=== PATIENT | female | born 1950 | race Caucasian/White ===

== ENCOUNTER 2022-04-29 09:26 | Outpatient (CLI) | payer MEDICARE, OTHER | END 2022-04-29 09:27 | disposition home or self-care (01) | LOC: CSHMAMMO 09:26 | PROVIDERS: ATTEND Specialist | DX: Z08 Encounter for follow-up examination after completed treatment for malignant neoplasm (principal); Z85.3 Personal history of malignant neoplasm of breast | CPT/HCPCS: 77066; G0279 ==

== ENCOUNTER 2022-12-17 06:06 | Day surgery (SDC) | payer MEDICARE, OTHER ==
[2022-12-13 10:02] VITALS: BMI 24.7
[2022-12-13 11:24] LABS: Hemoglobin 11.9 g/dL (12.0-15.5); Mean Corpuscular HGB CONC 32.4 g/dL (32.0-36.0); Mean Corpuscular Volume 89.3 fl (81.6-98.3); Mean Platelet Volume 9.3 fl (7.4-10.4); Platelet Count 404 10x3/uL (150-450); RBC Distribution Width 12.5 % (11.5-14.5); Red Blood Cell (RBC) Count 4.11 10x6/uL (3.90-5.03); White Blood Cell (WBC) Count 5.5 10x3/uL (3.5-10.5)
[2022-12-13 12:20] LABS: Anion Gap 16 mmol/L (10-20); BUN (Urea Nitrogen) 13 mg/dL (9.8-20.1); Calc. Creatinine Clearance 0 mL/min (70-130); Calcium 9.1 mg/dL (7.8-10.44); Carbon Dioxide 26 mmol/L (23-31); Chloride 105 mmol/L (98-107); Estimated GFR 71; Glucose 86 mg/dL (83-110); Potassium 4.2 mmol/L (3.5-5.1); Sodium 143 mmol/L (136-145)
[2022-12-17] MEDS ORDERED: EPINEPHrine 1 MG/ML AMP ONE (06:33)
[2022-12-17] MEDS ORDERED: Bupivacaine PF 0.5% 30 ML VIAL ONE (06:34)
[2022-12-17] MEDS ORDERED: Gabapentin 300 MG CAP ONE (06:41)
[2022-12-17] MEDS ORDERED: Famotidine/PF 20 mg/2ml Vial ONE (06:42)
[2022-12-17] MEDS ORDERED: Dexamethasone 4 mg/ml Vial ONE (06:49)
[2022-12-17] MEDS ORDERED: Lidocaine 1% PF 5 ML VIAL ONE (06:49)
[2022-12-17] MEDS ORDERED: Ondansetron PF 4 MG/2 ML Vial ONE ×2 (06:49→11:32)
[2022-12-17] MEDS ORDERED: Rocuronium Bromide 10 MG/ML (10ML VIAL) ONE (06:49)
[2022-12-17] MEDS ORDERED: PROPOFOL 20 ML ONE (06:50)
[2022-12-17] MEDS ORDERED: Fentanyl 250 MCG/5 ML VIAL ONE (06:50)
[2022-12-17] MEDS ORDERED: Promethazine HCl 25 MG/ML VIAL ONE (06:58)
[2022-12-17] MEDS ORDERED: Acetaminophen 500 MG TAB ONE (07:07)
[2022-12-17] MEDS ORDERED: Scopolamine 1.5 mg/72 hour Patch ONE (07:17)
[2022-12-17] MEDS ORDERED: CEFAZOLIN 2 GM VIAL ONE (07:19)
[2022-12-17] MEDS ORDERED: Glycopyrrolate 0.2 MG/ML 5 ML SYRINGE ONE (07:56)
[2022-12-17] MEDS ORDERED: PHENYLEPHRINE-NS 100 MCG/ML 10 ML SYRINGE ONE (08:46)
== END 2022-12-17 13:45 | disposition home or self-care (01) ==
LOC: CSHSDC 06:06
PROVIDERS: ATTEND Obstetrics & Gynecology
PROC: 0UT74ZZ Resection of Bilateral Fallopian Tubes, Percutaneous Endoscopic Approach (ICD-10-PCS; principal; 2022-12-17)
PROC: 0UT24ZZ Resection of Bilateral Ovaries, Percutaneous Endoscopic Approach (ICD-10-PCS; 2022-12-17)
DX: D27.0 Benign neoplasm of right ovary (principal); N83.8 Other noninflammatory disorders of ovary, fallopian tube and broad ligament; N83.12 Corpus luteum cyst of left ovary; R19.09 Other intra-abdominal and pelvic swelling, mass and lump; D05.02 Lobular carcinoma in situ of left breast; I48.0 Paroxysmal atrial fibrillation; D25.9 Leiomyoma of uterus, unspecified; M81.0 Age-related osteoporosis without current pathological fracture; Z90.49 Acquired absence of other specified parts of digestive tract; Z79.01 Long term (current) use of anticoagulants; Z79.899 Other long term (current) drug therapy; Z88.2 Allergy status to sulfonamides; Z98.51 Tubal ligation status
CPT/HCPCS: 36415; 80048; 85027; 86850; 86900; 86901; 88112; 88307; J0171; J1100; J2405; J2550; J2704; J3010; S0020; S0028

== ENCOUNTER 2023-03-25 10:03 | Outpatient (CLI) | payer MEDICARE, OTHER | END 2023-03-25 10:04 | disposition home or self-care (01) | LOC: CSHMAMMO 10:03 | PROVIDERS: ATTEND Internal Medicine Hematology & Oncology | DX: Z13.820 Encounter for screening for osteoporosis (principal); C50.112 Malignant neoplasm of central portion of left female breast; M85.89 Other specified disorders of bone density and structure, multiple sites | CPT/HCPCS: 77080 ==

== ENCOUNTER 2023-05-27 09:53 | Outpatient (CLI) | payer MEDICARE, OTHER | END 2023-05-27 09:54 | disposition home or self-care (01) | LOC: CSHMAMMO 09:53 | PROVIDERS: ATTEND Specialist | DX: Z08 Encounter for follow-up examination after completed treatment for malignant neoplasm (principal); Z85.3 Personal history of malignant neoplasm of breast | CPT/HCPCS: 77066; G0279 ==

== ENCOUNTER 2024-06-10 13:35 | Outpatient (CLI) | payer MEDICARE, OTHER | END 2024-06-10 13:36 | disposition home or self-care (01) | LOC: CSHMAMMO 13:35 | PROVIDERS: ATTEND Specialist | DX: Z12.31 Encounter for screening mammogram for malignant neoplasm of breast (principal); Z80.3 Family history of malignant neoplasm of breast; Z85.3 Personal history of malignant neoplasm of breast; Z98.890 Other specified postprocedural states | CPT/HCPCS: 77063; 77067 ==